=== PATIENT | male | born 1995 | race Caucasian/White ===

== ENCOUNTER 2017-04-26 13:28 | Emergency (ER) | payer OTHER ==
[~2017-04-26] VITALS: Ht 180.3 cm; Wt 113.4 kg
[~2017-04-26 13:28] MED LIST: PRED20TA PO
[2017-04-26 13:35] VITALS: BP 128/71
[2017-04-26] MEDS ORDERED: methylPREDNISolone SOD SUCC PF 125 MG/2 ML VIAL. ONE (13:37)
[2017-04-26] MEDS ORDERED: diphenhydrAMINE 50 MG/ML VIAL ONE (13:37)
[2017-04-26] MEDS ORDERED: FAMOTIDINE 20 MG/2 ML VIAL ONE (13:37)
[2017-04-26] MEDS ORDERED: IV NORMAL SALINE 1,000ML 1,000 ML IV SCH (13:39)
[2017-04-26] MEDS ORDERED: methylPREDNISolone SOD SUCC PF 125 MG/2 ML VIAL. IV ONE (14:10)
[2017-04-26] MEDS ORDERED: FAMOTIDINE 20 MG/2 ML VIAL IVP ONE (14:10)
[2017-04-26] MEDS ORDERED: diphenhydrAMINE 50 MG/ML VIAL IV ONE (14:10)
[2017-04-26] MEDS ORDERED: PRED50TA PO (15:19)
--- NOTE | 2017-04-26 15:19 | PHYS DOC ---
Past History Past Medical History: No Pertinent History Past Surgical History: No Surgical History Alcohol Use: None Drug Use: None Adult General Chief Complaint Chief Complaint: ALLERGIC REACTION HPI HPI Patient is a 21 year old male who presents with allergic reaction. Just prior to arrival the patient reports onset of diffuse itchy rash to face, torso, extremities. Denies face/tongue/lip swelling, shortness of breath, nausea, vomiting, diarrhea. Reports previous history of similar symptoms twice in the past, no cause identified. Today denies exposures to new medications, foods, soaps, lotions, detergents, other chemicals. He works at an [employer] shop & each time symptoms began in the workplace but no trigger has been identified. Previously healthy. Review of Systems Review of Systems Constitutional: Denies fever or chills HENT: Denies nasal congestion or sore throat Respiratory: Denies cough or shortness of breath Cardiovascular: Denies chest pain GI: Denies abdominal pain, nausea, vomiting, or diarrhea Musculoskeletal: Denies back pain or joint pain Integument: Reports rash Neurologic: Denies headache Current Medications Current Medications Current Medications Medications (Trade) Dose Ordered Sig/Luis Alfredo Start Time Stop Time Status Last Admin Dose Admin Diphenhydramine HCl (Benadryl) 50 mg 1X ONCE 04/26/17 14:10 04/26/17 14:11 DC Famotidine (Pepcid) 20 mg 1X ONCE 04/26/17 14:10 04/26/17 14:11 DC Methylprednisolone Sodium Succinate (SOLU-Medrol 125MG VIAL) 125 mg 1X ONCE 04/26/17 14:10 04/26/17 14:11 DC Sodium Chloride 1,000 ml @ 1,000 mls/hr Q1H 04/26/17 13:39 04/26/17 14:38 DC Allergies Allergies Allergies Coded Allergies Type Severity Reaction Last Updated Verified Cephalosporins Allergy Intermediate 08/30/16 Yes Penicillins Allergy Intermediate 08/30/16 Yes Physical Exam Physical Exam Constitutional: obese, no acute distress, non-toxic appearance. HENT: Normocephalic, atraumatic, bilateral external ears normal, oropharynx moist, nose normal. no face/tongue/lip swelling, airway patent. Eyes: conjunctiva normal, no discharge. Neck: supple, no stridor. Cardiovascular: RRR, no murmurs, no edema. Lungs & Thorax: LCTAB, no wheezing, no respiratory distress. Abdomen: soft, nontender, nondistended. Skin: diffuse urticaria to face, torso, extremities. Back: No tenderness. Extremities: No tenderness Neurologic: Alert and oriented X 3, no focal deficits noted. Psychologic: Affect normal, judgement normal, mood normal. Current Patient Data Vital Signs Vital Signs Date Time Temp Pulse Resp B/P (MAP) Pulse Ox O2 Delivery O2 Flow Rate FiO2 04/26/17 13:35 97.3 95 16 96 Room Air EKG EKG [] Radiology/Procedures Radiology/Procedures [] Course & Med Decision Making Course & Med Decision Making Pertinent Labs and Imaging studies reviewed. (See chart for details) The patient presents with allergic reaction. Stable without respiratory involvement. Gave IV fluids, solumedrol, benadryl, pepcid. He improved with treatment, no other systems involved. He requested discharge home. Recommend rest, hydration, continue benadryl, prednisone prescription given. Follow up with PCP in 2-3 days, may benefit from allergy referral as he continues to have outbreaks of urticaria without known trigger. Come back for face/tongue/lip swelling, severe shortness of breath, any otherwise worsening condition. Discharged home in stable condition. [] Dragon Disclaimer Dragon Disclaimer This chart was dictated in whole or in part using Voice Recognition software in a busy, high-work load, and often noisy Emergency Department environment. It may contain unintended and wholly unrecognized errors or omissions. Departure Departure: Impression: Primary Impression: Allergic reaction Disposition: 01 HOME, SELF-CARE Condition: IMPROVED Patient Instructions: Contact Dermatitis, [id number] Additional Instructions: You seen in the emergency department today for allergic reaction to unknown substance. You improved with treatment here. Please rest, fluids, take Benadryl every 6 hours, continue the steroid pills. Follow-up with primary care physician and medical records specialist within the next week. Return to the emergency department for face/tongue/lip swelling, severe shortness of breath, any otherwise worsening condition. Scripts Prednisone (PREDNISONE) 50 Mg Tablet 1 TAB PO DAILY, #5 TAB Prov: MELISSA MARI MD 04/26/17 Problem Qualifiers Primary Impression: Allergic reaction Encounter type: initial encounter Qualified Codes: T78.40XA - Allergy, unspecified, initial encounter MELISSA MARI MD Apr 26, 2017 15:19
== END 2017-04-26 15:40 | disposition home or self-care (01) ==
LOC: ER 13:28
DX: T78.40XA Allergy, unspecified, initial encounter (principal); Z88.1 Allergy status to other antibiotic agents; Z88.0 Allergy status to penicillin; X58.XXXA Exposure to other specified factors, initial encounter
CPT/HCPCS: 99283

== ENCOUNTER 2017-09-08 23:41 | Emergency (ER) | payer OTHER ==
[~2017-09-08] VITALS: Ht 180.3 cm; Wt 113.4 kg
[~2017-09-08 23:41] MED LIST changes: +PRED50TA PO
[2017-09-09] MEDS ORDERED: ceFAZolin IM 1 GM VIAL IM ONE
[2017-09-09] MEDS ORDERED: IBUPROFEN 600 MG TABLET. PO ONE (00:30)
[2017-09-09] MEDS ORDERED: DIPHTH,PERTUSS(ACELL),TET TOX 0.5 ML DISP.SYRIN. VAX IM ONE (00:30)
[2017-09-09] MEDS ORDERED: HYDROcodone/APAP 5/325MG 1 TAB TABLET PO ONE (00:30)
[2017-09-09] MEDS ORDERED: LIDOCAINE 1% Multi-Dose 20 ML VIAL. IJ ONE (00:30)
[2017-09-09] MEDS ORDERED: IBUP600T16 PO (01:04)
[2017-09-09] MEDS ORDERED: SULF1TAB24 PO (01:04)
[2017-09-09] MEDS ORDERED: HYDR-971 PO (01:04)
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
[2017-09-09] MEDS ORDERED: BACITRACIN/POLYMYXIN B TOPICAL OINT 15GM TUBE. TP ONE ×2 (01:06→01:30)
[2017-09-09 01:25] VITALS: BP 123/76
[2017-09-09] MEDS ORDERED: BACITRACIN TOPICAL OINT 28GM TUBE. TP ONE (01:30)
[2017-09-09] MEDS ORDERED: SMZ/TMP 800/160MG TABLET. PO ONE (01:30)
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
== END 2017-09-09 01:31 | disposition home or self-care (01) ==
LOC: ER 23:41
DX: S61.432A Puncture wound without foreign body of left hand, initial encounter (principal); Z88.0 Allergy status to penicillin; Z88.1 Allergy status to other antibiotic agents; W34.00XA Accidental discharge from unspecified firearms or gun, initial encounter; Y93.89 Activity, other specified; Y99.8 Other external cause status; Y92.89 Other specified places as the place of occurrence of the external cause
CPT/HCPCS: 12001; 73130; 90471; 90715; 99284-25

== ENCOUNTER 2018-11-10 22:55 | Emergency (ER) | payer OTHER ==
[~2018-11-10] VITALS: Ht 180.3 cm; Wt 113.4 kg
[~2018-11-10 22:55] MED LIST changes: +HYDR-3165 PO; +IBUP600T16 PO; +SULF1TAB24 PO
[2018-11-10] MEDS ORDERED: diphenhydrAMINE 50 MG/ML VIAL ONE (23:06)
[2018-11-10] MEDS ORDERED: FAMOTIDINE 20 MG/2 ML VIAL ONE (23:07)
[2018-11-10] MEDS ORDERED: methylPREDNISolone SOD SUCC PF 125 MG/2 ML VIAL. ONE (23:07)
[2018-11-10] MEDS ORDERED: diphenhydrAMINE 50 MG/ML VIAL IVP ONE (23:15)
[2018-11-10] MEDS ORDERED: methylPREDNISolone SOD SUCC PF 125 MG/2 ML VIAL. IV ONE (23:15)
[2018-11-10] MEDS ORDERED: FAMOTIDINE 20 MG/2 ML VIAL IVP ONE (23:15)
[2018-11-10] MEDS ORDERED: ONDANSETRON PF 4 MG/2 ML VIAL. ONE (23:17)
[2018-11-10] MEDS ORDERED: ONDANSETRON PF 4 MG/2 ML VIAL. IV ONE (23:30)
[2018-11-10 23:47] VITALS: BP 149/81
--- NOTE | 2018-11-10 23:58 | PHYS DOC ---
Past History Past Medical History: No Pertinent History Past Surgical History: No Surgical History Alcohol Use: None Drug Use: None Adult General Chief Complaint Chief Complaint: ALLERGIC REACTION HPI HPI Patient is a 23-year-old male who presents with complaint of hives that started about an hour ago. Patient states these get a history of similar episodes in the past but he has not identified a trigger. He indicates that he has not taken any medication as yet. He denies any shortness of breath. He states that he is itching everywhere. He denies difficulty in swallowing.[] Review of Systems Review of Systems Constitutional: Denies fever or chills [] Respiratory: Denies cough or shortness of breath [] Cardiovascular: No additional information not addressed in HPI [] Integument: Positive diffuse urticarial rash[] Neurologic: Denies headache, focal weakness or sensory changes [] Current Medications Current Medications Current Medications Medications (Trade) Dose Ordered Sig/Luis Alfredo Start Time Stop Time Status Last Admin Dose Admin Diphenhydramine HCl (Benadryl) 75 mg 1X ONCE 11/10/18 23:15 11/10/18 23:16 UNV 11/10/18 23:09 75 MG Famotidine (Pepcid Vial) 20 mg 1X ONCE 11/10/18 23:15 11/10/18 23:16 UNV 11/10/18 23:10 20 MG Methylprednisolone Sodium Succinate (SOLU-Medrol 125MG VIAL) 250 mg 1X ONCE 11/10/18 23:15 11/10/18 23:16 UNV 11/10/18 23:10 250 MG Ondansetron HCl (Zofran) 4 mg 1X ONCE 11/10/18 23:30 11/10/18 23:31 UNV 11/10/18 23:18 4 MG Allergies Allergies Allergies Coded Allergies Type Severity Reaction Last Updated Verified Cephalosporins Allergy Intermediate 08/30/16 Yes Penicillins Allergy Intermediate 08/30/16 Yes Physical Exam Physical Exam Constitutional: Well developed, well nourished, no acute distress, non-toxic appearance. [] HENT: Normocephalic, atraumatic, bilateral external ears normal, oropharynx moist, no oral exudates, nose normal. [] Eyes: PERRLA, EOMI, conjunctiva normal, no discharge. [] Cardiovascular: Mildly tachycardic rate with regular rhythm[] Lungs & Thorax: Bilateral breath sounds clear to auscultation [] Skin: There is a diffuse urticarial rash. [] Extremities: No tenderness, no cyanosis, no clubbing, ROM intact, no edema. [] Current Patient Data Vital Signs Vital Signs Date Time Temp Pulse Resp B/P (MAP) Pulse Ox O2 Delivery O2 Flow Rate FiO2 11/10/18 23:47 89 18 149/81 (103) 98 Room Air 11/10/18 22:55 98.4 EKG EKG [] Radiology/Procedures Radiology/Procedures [] Course & Med Decision Making Course & Med Decision Making Pertinent Labs and Imaging studies reviewed. (See chart for details) [] Dragon Disclaimer Dragon Disclaimer This electronic medical record was generated, in whole or in part, using a voice recognition dictation system. Departure Departure: Impression: Primary Impression: Urticaria Disposition: 01 HOME, SELF-CARE Condition: STABLE Referrals: ANGEL LUIS LEWIS MD (PCP) Patient Instructions: Hives Alexandra Fexofenadine Hcl (PEACE ALLERGY) 180 Mg Tablet 1 TAB PO DAILY for urticaria, #30 TAB Prov: MEDINA DAVID Jr. DO 11/10/18 Methylprednisolone (MEDROL) 4 Mg Tab.ds.pk 1 PKG PO UD for rash, #1 PKG Prov: MEDINA DAVID Jr. DO 11/10/18 MEDINA DAVID Jr. DO November 10, 2018 23:58
[2018-11-10] MEDS ORDERED: METH4TAB2 PO (23:59)
[2018-11-10] MEDS ORDERED: FEXO180T81 PO (23:59)
== END 2018-11-11 | disposition home or self-care (01) ==
LOC: ER 22:55
DX: L29.9 Pruritus, unspecified (principal); L50.9 Urticaria, unspecified; Z88.0 Allergy status to penicillin; Z88.1 Allergy status to other antibiotic agents
CPT/HCPCS: 96374; 96375; 99284; J1200; J2405; J2930; J3490

== ENCOUNTER 2019-05-18 20:45 | Emergency (ER) | payer OTHER ==
[~2019-05-18] VITALS: Ht 180.3 cm; Wt 113.4 kg
[~2019-05-18 20:45] MED LIST changes: +FEXO180T81 PO; +METH4TAB2 PO
[2019-05-18] MEDS ORDERED: diphenhydrAMINE 50 MG/ML VIAL ONE (20:50)
[2019-05-18] MEDS ORDERED: methylPREDNISolone SOD SUCC PF 125 MG/2 ML VIAL. ONE (20:50)
[2019-05-18] MEDS ORDERED: FAMOTIDINE 20 MG/2 ML VIAL ONE (20:51)
--- NOTE | 2019-05-18 21:07 | PHYS DOC ---
Past History Past Medical History: No Pertinent History Past Surgical History: No Surgical History Alcohol Use: None Drug Use: None Adult General Chief Complaint Chief Complaint: allergic reaction HPI HPI 23-year-old male presents for allergic reaction. The patient was sitting at home on his couch playing video games around 8 PM when he began to get pruritus and urticaria. 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 He took Benadryl at that time and it improved. Today the patient took Benadryl 30 minutes before coming to the emergency room and it has not helped at all. He denies shortness of breath. He feels some mild chest tightness, but does not feel like he is unable to take a breath. He has had episodes similar to this over the last few months. This is at least the fourth episode. He has no idea what he is allergic to. He has no known allergies. He has not seen an torch heater. Denies any change in foods, medications, cosmetics. Denies fever or chills. Review of Systems Review of Systems Constitutional: Denies fever or chills [] Eyes: Denies change in visual acuity, redness, or eye pain [] HENT: Denies nasal congestion or sore throat [] Respiratory: Denies cough or shortness of breath [] Cardiovascular: No additional information not addressed in HPI [] GI: Denies abdominal pain, nausea, vomiting, bloody stools or diarrhea [] : Denies dysuria or hematuria [] Musculoskeletal: Denies back pain or joint pain [] Integument: Urticaria[] Neurologic: Denies headache, focal weakness or sensory changes [] Endocrine: Denies polyuria or polydipsia [] All other systems were reviewed and found to be within normal limits, except as documented in this note. Current Medications Current Medications Current Medications Medications (Trade) Dose Ordered Sig/Luis Alfredo Start Time Stop Time Status Last Admin Dose Admin Diphenhydramine HCl (Benadryl) 50 mg 1X ONCE 05/18/19 21:00 05/18/19 21:01 UNV Famotidine (Pepcid Vial) 20 mg 1X ONCE 05/18/19 21:00 05/18/19 21:01 UNV Methylprednisolone Sodium Succinate (SOLU-Medrol 125MG VIAL) 125 mg 1X ONCE 05/18/19 21:00 05/18/19 21:01 UNV Allergies Allergies Allergies Coded Allergies Type Severity Reaction Last Updated Verified Cephalosporins Allergy Intermediate 08/30/16 Yes Penicillins Allergy Intermediate 08/30/16 Yes Physical Exam Physical Exam Constitutional: Well developed, obese, well nourished, no acute distress, non- toxic appearance. [] HENT: Normocephalic, atraumatic, bilateral external ears normal, oropharynx moist, no oral exudates, nose normal. No oral pharyngeal swelling or erythema.[] Eyes: PERRLA, EOMI, conjunctiva normal, no discharge. [] Neck: Normal range of motion, no tenderness, supple, no stridor. [] Cardiovascular:Heart rate regular rhythm, no murmur [] Lungs & Thorax: Bilateral breath sounds clear to auscultation [] Abdomen: Bowel sounds normal, soft, no tenderness, no masses, no pulsatile masses. [] Skin: Diffuse urticaria of the chest, abdomen, back, bilateral upper and lower extremities.[] Back: No tenderness, no CVA tenderness. [] Extremities: No tenderness, no cyanosis, no clubbing, ROM intact, no edema. [] Neurologic: Alert and oriented X 3, normal motor function, normal sensory function, no focal deficits noted. [] Psychologic: Affect normal, judgement normal, mood normal. [] EKG EKG [] Radiology/Procedures Radiology/Procedures [] Course & Med Decision Making Course & Med Decision Making Pertinent Labs and Imaging studies reviewed. (See chart for details) The patient does appear having allergic reaction to something. We have given him a liter normal saline, 20 mg of Pepcid IV, I do not as of Benadryl IV, and 125 mg of Solu-Medrol IV. The patient's labs are unremarkable except for some slightly elevated liver enzymes. The patient is feeling a bit better at this time. I will treat him for an additional 3 days with prednisone 60 mg daily. I have strongly advised that the patient have allergy testing as soon as possible. He is stable for discharge at this time. [] Dragon Disclaimer Dragon Disclaimer This electronic medical record was generated, in whole or in part, using a voice recognition dictation system. Departure Departure: Impression: Primary Impression: Allergic reaction Disposition: HOME, SELF-CARE Condition: IMPROVED Referrals: ANGEL LUIS LEWIS MD (PCP) Patient Instructions: Allergy Tests Scripts Prednisone (PREDNISONE) 20 Mg Tablet 3 TAB PO DAILY for allergic reaction for 3 Days, #9 TAB Prov: SANCHEZ CALZADA DO 05/18/19 Problem Qualifiers Primary Impression: Allergic reaction Encounter type: initial encounter Qualified Codes: T78.40XA - Allergy, unspecified, initial encounter SANCHEZ CALZADA DO May 18, 2019 21:07
[2019-05-18 21:12] LABS: BASO # 0.1 x10^3/uL (0.0-0.2); BASO % 1 % (0-3); EOS # 0.2 x10^3/uL (0.0-0.7); EOS % 1 % (0-3); HEMOGLOBIN 16.6 g/dL (13.0-17.5); LYMPH # 4.4 x10^3/uL (1.0-4.8); LYMPH % 34 % (24-48); MEAN CORPUSCULAR HEMOGLOBIN 29 pg (25-35); MEAN CORPUSCULAR HGB CONC 33 g/dL (31-37); MEAN CORPUSCULAR VOLUME 87 fL (79-100); MONO % 8 % (0-9); NEUT # 7.1 x10^3uL (1.8-7.7); NEUT % 56 % (31-73); PLATELET COUNT 333 x10^3/uL (140-400); RED BLOOD COUNT 5.73 x10^6/uL (4.30-5.70); RED CELL DISTRIBUTION WIDTH 13.7 % (11.5-14.5); WHITE BLOOD COUNT 12.7 x10^3/uL (4.0-11.0)
[2019-05-18] MEDS ORDERED: IV NORMAL SALINE 1,000ML 1,000 ML IV ONE (21:15)
[2019-05-18 21:23] LABS: ALBUMIN/GLOBULIN RATIO 1.1 (1.0-1.7); CALCIUM 9.1 mg/dL (8.5-10.1); CREATININE 1.3 mg/dL (0.7-1.3); GFR 68.4; POTASSIUM 3.6 mmol/L (3.5-5.1); TOTAL BILIRUBIN 0.4 mg/dL (0.2-1.0); TOTAL PROTEIN 7.6 g/dL (6.4-8.2)
[2019-05-18] MEDS ORDERED: FAMOTIDINE 20 MG/2 ML VIAL IVP ONE (21:30)
[2019-05-18] MEDS ORDERED: methylPREDNISolone SOD SUCC PF 125 MG/2 ML VIAL. IV ONE (21:30)
[2019-05-18] MEDS ORDERED: diphenhydrAMINE 50 MG/ML VIAL IVP ONE (21:30)
[2019-05-18] MEDS ORDERED: PRED20TA PO (22:43)
[2019-05-18 22:49] VITALS: BP 118/67
== END 2019-05-18 22:53 | disposition home or self-care (01) ==
LOC: ER 20:45
DX: T78.40XA Allergy, unspecified, initial encounter (principal); Z88.1 Allergy status to other antibiotic agents; Z88.0 Allergy status to penicillin; X58.XXXA Exposure to other specified factors, initial encounter
CPT/HCPCS: 36415; 80053; 85025; 96374; 96375; 99284; J1200; J2930; J3490; J7030

== ENCOUNTER 2019-05-27 18:27 | Emergency (ER) | payer OTHER ==
[~2019-05-27] VITALS: Ht 180.3 cm; Wt 113.4 kg
[2019-05-27] MEDS ORDERED: diphenhydrAMINE 50 MG/ML VIAL ONE (18:30)
[2019-05-27] MEDS ORDERED: FAMOTIDINE 20 MG/2 ML VIAL ONE (18:30)
[2019-05-27] MEDS ORDERED: methylPREDNISolone SOD SUCC PF 125 MG/2 ML VIAL. ONE (18:30)
[2019-05-27] MEDS ORDERED: IV NORMAL SALINE 1,000ML 1,000 ML IV ONE (18:45)
[2019-05-27] MEDS ORDERED: FAMOTIDINE 20 MG/2 ML VIAL IVP ONE (18:45)
--- NOTE | 2019-05-27 18:45 | PHYS DOC ---
Past History Past Medical History: No Pertinent History Past Surgical History: No Surgical History Alcohol Use: None Drug Use: None Adult General Chief Complaint Chief Complaint: ALLERGIC REACTION HPI HPI Patient is a 23-year-old male who presents to the emergency department for evaluation. He states about 30 minutes prior to arrival, he began experiencing hives, and itchiness diffusely, along with some mild shortness of breath. He took 50 mg of oral Benadryl, and 3 tablets that were previously prescribed for him when he was recently here, to take in case this occurs again, which I suspect her prednisone but he is trying to verify. He does not have any dizziness or lightheadedness, and states his itchiness has improved after taking the Benadryl. He denies any pain. He does report some mild shortness of breath. There are no alleviating or exacerbating factors to his symptoms. He did not eat anything prior to the onset of his symptoms, and is uncertain what he might be allergic to. He denies any medications on a daily basis. Review of Systems Review of Systems Constitutional: Denies fever or chills [] Eyes: Denies change in visual acuity, redness, or eye pain [] HENT: Denies nasal congestion or sore throat [] Respiratory: Denies cough. Reports some shortness of breath [] Cardiovascular: The patient denies any chest pain, palpitations, or orthopnea [] GI: Denies abdominal pain, nausea, vomiting, bloody stools or diarrhea [] : Denies dysuria or hematuria [] Musculoskeletal: Denies back pain or joint pain [] Integument: Reports hives, improving now[] Neurologic: Denies headache, focal weakness or sensory changes [] Endocrine: Denies polyuria or polydipsia [] All other systems were reviewed and found to be within normal limits, except as documented in this note. Current Medications Current Medications Current Medications Medications (Trade) Dose Ordered Sig/Luis Alfredo Start Time Stop Time Status Last Admin Dose Admin Diphenhydramine HCl (Benadryl) 50 mg STK-MED ONCE 05/27/19 18:30 05/27/19 18:30 DC Epinephrine HCl (EPINEPHrine AMPULE) 0.3 mg 1X ONCE 05/27/19 18:45 05/27/19 18:46 UNV Famotidine (Pepcid Vial) 20 mg 1X ONCE 05/27/19 18:45 05/27/19 18:46 UNV Methylprednisolone Sodium Succinate (SOLU-Medrol 125MG VIAL) 125 mg STK-MED ONCE 05/27/19 18:30 05/27/19 18:30 DC Sodium Chloride 1,000 ml @ 1,000 mls/hr 1X ONCE 05/27/19 18:45 05/27/19 19:44 UNV Allergies Allergies Allergies Coded Allergies Type Severity Reaction Last Updated Verified Cephalosporins Allergy Intermediate 08/30/16 Yes Penicillins Allergy Intermediate 08/30/16 Yes Physical Exam Physical Exam PHYSICAL EXAM: CONSTITUTIONAL: Well developed, well nourished HEAD: normocephalic, atraumatic EENT: PERRL, EOMI. Conjunctivae normal color, sclerae non-icteric; moist mucous membranes. The oropharynx is unremarkable. There is no uvular edema or posterior tonsillar edema. NECK: Supple, non-tender; no meningismus. LUNGS: There are mild scattered wheezes, breathing even and unlabored. Normal air movement. HEART: Regular rate and rhythm, no murmur CHEST: No deformity; non-tender ABDOMEN: The abdomen is soft, and non-tender, no masses or bruits. EXTREM: Normal ROM; no deformity, no calf tenderness. Normal pulses palpable in all extremities. There is no pedal edema. SKIN: There are scattered urticarial lesions on the trunk and upper extremities, no other rash; no diaphoresis NEURO: Alert; normal speech and cognition; CN's grossly intact; strength grossly intact without focal deficit. BACK: No CVA TTP. EKG EKG [] Radiology/Procedures Radiology/Procedures [] Course & Med Decision Making Course & Med Decision Making 7:45 PM: The patient's condition remains stable, he is feeling significantly better at this time. I discussed the importance of close follow-up, allergy referral and further allergy workup as an outpatient, and return precautions in detail. Dragon Disclaimer Dragon Disclaimer This electronic medical record was generated, in whole or in part, using a voice recognition dictation system. Departure Departure: Impression: Primary Impression: Allergic reaction Disposition: HOME, SELF-CARE Condition: STABLE Referrals: ANGEL LUIS LEWIS MD (PCP) Patient Instructions: Allergies, Generic, Anaphylactic Reaction Additional Instructions: Take Benadryl 25-50 mg every 6 hours for the next 3 days. Use caution as this may cause sedation. Additionally, take Pepcid AC 10 mg twice daily for the next 3 days. This medicine is available [id number]. Use the prescribed steroids as instructed. Return to medical care for any new, or worsening symptoms, the development of shortness of breath, new rash, dizziness lightheadedness, fevers, or any other new, or concerning symptoms. Scripts Epinephrine (EPIPEN 2-REYNALDO) 0.3 Mg/0.3 Ml Auto.injct 1 SYR IM ONCE for Anaphylaxis for 1 Day, #1 PACKET 0 Refills Prov: ANGELA MONTANO MD 05/27/19 Prednisone (PREDNISONE) 20 Mg Tablet 40 MG PO DAILY for - for 4 Days, #8 TAB Begin 05/28/19 Prov: ANGELA MONTANO MD 05/27/19 ANGELA MONTANO MD May 27, 2019 18:45
[2019-05-27 19:49] VITALS: BP 136/78
[2019-05-27] MEDS ORDERED: PRED20TA PO (19:50)
[2019-05-27] MEDS ORDERED: EPIN0.3A4 IM (19:50)
== END 2019-05-27 19:55 | disposition home or self-care (01) ==
LOC: ER 18:27
DX: T78.40XA Allergy, unspecified, initial encounter (principal); Z88.1 Allergy status to other antibiotic agents; Z88.0 Allergy status to penicillin; X58.XXXA Exposure to other specified factors, initial encounter
CPT/HCPCS: 96372; 96374; 99284; J0171; J3490; 96361; J7030